=== PATIENT | male | born 1955 | race Caucasian/White ===

== ENCOUNTER 2018-12-09 13:38 | Emergency (ER) | payer MEDICARE ==
--- NOTE | 2018-12-09 14:25 | RAD ---
LEFT WRIST RADIOGRAPHS THREE VIEWS: 12/09/2018 PROVIDED CLINICAL HISTORY: Pain, status post injury. FINDINGS: Nondisplaced intraarticular distal radial fracture. No additional fracture is evident. Alignment ap pears near anatomic. Joint spaces appear preserved. IMPRESSION: Nondisplaced intraarticular distal radial fracture. POS: C
== END 2018-12-09 15:01 | disposition home or self-care (01) ==
LOC: MADERS 13:38
DX: S52.572A Other intraarticular fracture of lower end of left radius, initial encounter for closed fracture (principal); E78.5 Hyperlipidemia, unspecified; I10 Essential (primary) hypertension; W01.0XXA Fall on same level from slipping, tripping and stumbling without subsequent striking against object, initial encounter
CPT/HCPCS: 29125